=== PATIENT | female | born 1965 | race Caucasian/White ===

== ENCOUNTER 2019-04-24 07:54 | Emergency (ER) | payer MEDICAID ==
[~2019-04-24] VITALS: Ht 149.9 cm; Wt 77.0 kg
[2019-04-24 08:18] LABS: BASOPHILS # (AUTO) 0.1 X10'3 (0-0.2); BASOPHILS % (AUTO) 1.2 % (0-1); EOSINOPHILS # (AUTO) 0.3 X10'3 (0-0.9); EOSINOPHILS % (AUTO) 2.9 % (0-6); HEMATOCRIT 41.7 % (35.0-45.0); HEMOGLOBIN 14.2 g/dl (12.0-16.0); LYMPHOCYTES # (AUTO) 2.8 X10'3 (1.1-4.8); LYMPHOCYTES % (AUTO) 28.9 % (21-51); MEAN CORPUSCULAR HEMOGLOBIN 28.8 PG (27.0-31.0); MEAN CORPUSCULAR VOLUME 84.9 FL (78-98); MEAN PLATELET VOLUME 8.8 FL (7.4-10.4); MONOCYTES # (AUTO) 0.7 X10'3 (0-0.9); MONOCYTES % (AUTO) 6.9 % (2-12); NEUTROPHILS # (AUTO) 5.8 X10'3 (1.8-7.7); NEUTROPHILS % (AUTO) 60.1 % (42-75); PLATELET COUNT 304 X10'3 (140-440); RED BLOOD COUNT 4.92 X10'6 (4.20-5.60); RED CELL DISTRIBUTION WIDTH 14.9 % (11.5-14.5); WHITE BLOOD COUNT 9.7 X10'3 (4.5-11.0)
[2019-04-24 08:32] LABS: ALANINE AMINOTRANSFERASE 58 U/L (12-78); ALBUMIN 3.7 G/DL (3.4-5.0); ALBUMIN/GLOBULIN RATIO 0.8 (1.1-1.5); ALKALINE PHOSPHATASE 148 IU/L (46-116); ANION GAP 9 (8-16); ASPARTATE AMINO TRANSFERASE 61 U/L (10-37); BILIRUBIN,TOTAL 0.4 MG/DL (0.1-1.0); BLOOD UREA NITROGEN 11 MG/DL (7-18); CALCIUM 9.2 MG/DL (8.5-10.1); CHLORIDE 102 MMOL/L (99-107); CREATININE 0.58 MG/DL (0.40-0.90); GLUCOSE 142 MG/DL (70-104); POTASSIUM 4.2 MMOL/L (3.5-5.1); SODIUM 140 MMOL/L (135-145); TOTAL CARBON DIOXIDE 29.4 MMOL/L (24-32); TOTAL PROTEIN 8.1 G/DL (6.4-8.2); eGFR > 90 ML/MIN
[2019-04-24] MEDS ORDERED: ibuprofen 200mg tablet PO ONE (08:55)
[2019-04-24 09:19] VITALS: BP 154/87
== END 2019-04-24 09:20 | disposition home or self-care (01) ==
LOC: EDBD 07:55 → ER 07:55
DX: R07.89 Other chest pain (principal); R06.02 Shortness of breath; R05 Cough; F31.9 Bipolar disorder, unspecified; E78.00 Pure hypercholesterolemia, unspecified; I10 Essential (primary) hypertension; E11.9 Type 2 diabetes mellitus without complications; F41.9 Anxiety disorder, unspecified; Z88.6 Allergy status to analgesic agent; Z98.890 Other specified postprocedural states
CPT/HCPCS: 36415; 71045; 80053; 84484; 85025; 93005; 99284

== ENCOUNTER 2019-10-26 07:23 | Day surgery (SDC) | payer MEDICAID ==
[2019-10-18 10:22] LABS: BASOPHILS # (AUTO) 0.1 X10'3 (0-0.2); BASOPHILS % (AUTO) 1.3 % (0-1); EOSINOPHILS # (AUTO) 0.2 X10'3 (0-0.9); EOSINOPHILS % (AUTO) 3.1 % (0-6); LYMPHOCYTES # (AUTO) 2.3 X10'3 (1.1-4.8); LYMPHOCYTES % (AUTO) 30.8 % (21-51); MEAN CORPUSCULAR HGB CONC 33.7 g/dL (33.0-36.5); MEAN PLATELET VOLUME 8.8 FL (7.4-10.4); MONOCYTES # (AUTO) 0.4 X10'3 (0-0.9); MONOCYTES % (AUTO) 6.1 % (2-12); NEUTROPHILS # (AUTO) 4.3 X10'3 (1.8-7.7); NEUTROPHILS % (AUTO) 58.7 % (42-75); PRE OP HEMATOCRIT 38.7 % (35.0-45.0); PRE OP HEMOGLOBIN 13.1 g/dL (12.0-16.0); PRE OP PLATELET COUNT 254 X10'3 (140-440); RED CELL DISTRIBUTION WIDTH 14.5 % (11.5-14.5)
[2019-10-18 10:36] LABS: ALBUMIN 3.3 G/DL (3.4-5.0); ALBUMIN/GLOBULIN RATIO 0.9 (1.1-1.5); ALKALINE PHOSPHATASE 117 IU/L (46-116); BLOOD UREA NITROGEN 11 MG/DL (7-18); BUN/CREATININE RATIO 18.6 (6.6-38.0); CALCIUM 8.8 MG/DL (8.5-10.1); CHLORIDE 105 MMOL/L (99-107); CREATININE 0.59 MG/DL (0.40-0.90); PRE OP ALT 21 U/L (30-65); PRE OP ANION GAP 6 (8-16); PRE OP AST 35 U/L (10-37); PRE OP BILIRUB, TOTAL 0.6 MG/DL (0.0-1.0); PRE OP GLUCOSE 94 MG/DL (70-104); PRE OP POTASSIUM 3.8 MMOL/L (3.4-5.1); PRE OP SODIUM 142 MMOL/L (135-145); TOTAL CARBON DIOXIDE 30.9 MMOL/L (24-32); TOTAL PROTEIN 6.9 G/DL (6.4-8.2); eGFR > 90 ML/MIN
[~2019-10-26] VITALS: Ht 149.9 cm; Wt 74.4 kg
[2019-10-26] VITALS (7 sets, daily range): BP systolic 112–140; BP diastolic 67–75
[~2019-10-26 07:23] MED LIST: ASPI-1265 PO; CETI10TA18 PO; CLON-527 PO; DOCU100C40 PO; EST1T PO; FLUT16SP2 BOTHNARES; GABA-532 PO; GABA600T13 PO; LURA40TA3 PO; METF-900 PO; NAPR-435 PO; ZOLP5TAB2 PO; cefazolin/dext.iso 2gm/50ml 50 ML IV ONE; famotidine 20mg tablet PO ONE; ringers solution, lacted 1,000 ML IV SCH; vancomycin 1,500 MG in NS 500ml IV soln IV ONE
[2019-10-26] MEDS ORDERED: BUPIVAcaine/PF 2.5 mg/ml (0.25%) 30ml vial ONE (09:04)
[2019-10-26] MEDS ORDERED: methylPREDNISolone sod succ 125mg/2ml vial ONE (09:04)
[2019-10-26] MEDS ORDERED: ringers solution, lacted 1,000 ML IV SCH (09:56)
[2019-10-26] MEDS ORDERED: morphine 4 MG/ML inj SYRINge IV PRN (10:00)
[2019-10-26] MEDS ORDERED: morphine 2 MG/ML inj. syringe IV PRN (10:00)
[2019-10-26] MEDS ORDERED: hydrALAZINE 20mg/ml inj. IV PRN (10:00)
[2019-10-26] MEDS ORDERED: labetalol 20mg/4ml (5mg/ml) syringe IV PRN (10:00)
[2019-10-26] MEDS ORDERED: ondansetron/PF 4mg/2ml inj IV PRN (10:00)
[2019-10-26] MEDS ORDERED: fentaNYL/PF 50MCG/1 ML 2ML syringe IV PRN ×2 (10:00)
[2019-10-26] MEDS ORDERED: fentaNYL/PF 50MCG/1 ML 2ML syringe ONE (10:24)
[2019-10-26] MEDS ORDERED: midazolam 2 mg/2 ml injection ONE (10:25)
[2019-10-26] MEDS ORDERED: LIDOcaine 0.5% (5mg/ml) 50ml vial ONE (10:25)
--- NOTE | 2019-10-26 11:07 | NUR ---
Received from OR via [facility] , accompanied by Anesthesiologist DEION and report given by Anesthesiolgist. 20G PIV IN RIGHT UE RUNNING LR AT 100. DENIES PAIN, + MOVEMENT TO FINGERS LEFT UE. DENIES PAIN AT THIS TIME. Addendum: 10/26/19 at 1115 by John Thacker RN, RN Amended: Links added.
--- NOTE | 2019-10-26 12:07 | NUR ---
All dc criteria for discharge home has been met. IV taken out without complications. All questions answered regarding dc paperwork. Vss. Significant other present to take patient home. Dressings cdi and vital signs stable. Taken out via wheelchair to personal vehicle where patient taken home by family/friend. ICE DONNED PRIOR TO DC HOME. Addendum: 10/26/19 at 1223 by John Thacker RN, RN Amended: Links added.
== END 2019-10-26 12:07 | disposition home or self-care (01) ==
LOC: PRE-OP 07:23 → PAS 12:07
PROVIDERS: ATTEND Orthopaedic Surgery
DX: G56.02 Carpal tunnel syndrome, left upper limb (principal); G56.22 Lesion of ulnar nerve, left upper limb; F31.9 Bipolar disorder, unspecified; G89.29 Other chronic pain; E11.51 Type 2 diabetes mellitus with diabetic peripheral angiopathy without gangrene; M19.90 Unspecified osteoarthritis, unspecified site; E78.5 Hyperlipidemia, unspecified; E66.8 Other obesity; Z68.34 Body mass index [BMI] 34.0-34.9, adult; Z87.442 Personal history of urinary calculi; Z79.84 Long term (current) use of oral hypoglycemic drugs; Z79.899 Other long term (current) drug therapy; Z90.710 Acquired absence of both cervix and uterus; Z98.890 Other specified postprocedural states; Z87.891 Personal history of nicotine dependence; Z88.5 Allergy status to narcotic agent; Z11.59 Encounter for screening for other viral diseases
CPT/HCPCS: 36415; 64719; 64721; 80053; 82948; 85025; 87635; 93005; A6222; J2001; J2250; J2930; J3010; J3370; J3490; J7040; A4215; A4618; A6449; A7000; J7120